=== PATIENT | female | born 1985 | race Caucasian/White ===

== ENCOUNTER 2024-09-25 20:45 | Emergency (ER) | payer OTHER ==
[~2024-09-25] VITALS: Ht 172.7 cm; Wt 80.5 kg
[~2024-09-25 20:45] MED LIST: AMOX875T PO
[2024-09-25 21:02] VITALS: BP 125/85; TEMP 98.2; O2SAT 98
== END 2024-09-25 21:34 | disposition left against medical advice (07) ==
LOC: M ED 20:45
DX: Z53.21 Procedure and treatment not carried out due to patient leaving prior to being seen by health care provider (principal)

== ENCOUNTER 2024-10-17 12:26 | Day surgery (SDC) | payer OTHER ==
[~2024-10-17] VITALS: Ht 172.7 cm; Wt 77.6 kg
[2024-10-17] MEDS: LIDOCAINE 2% W/ EPINEPHRINE 1.7 ML DENTAL INJ As Ordered ONE (08:06)
[2024-10-17] MEDS: BUPivacaine LIPOSOME/PF 266MG 20ML VIAL (13.3MG/ML)(EXPAREL) As Ordered ONE (08:06)
[~2024-10-17 12:26] MED LIST changes: +AMPICILLIN SOD/SULBACTAM SOD 3 GM in SODIUM CHLORIDE 0.9% 100ML ADD 100 ML IV ONE
[2024-10-17] MEDS ORDERED: LR 1,000 ML IV SCH ×2 (13:20→15:10)
[2024-10-17] MEDS ORDERED: LIDOCAINE 2% 100MG/5ML SDV (FOR ANES.) As Ordered ONE (14:00)
[2024-10-17] MEDS ORDERED: propofoL 200 MG/20 ML VIAL As Ordered ONE (14:00)
[2024-10-17] MEDS ORDERED: SUGAMMADEX SODIUM 500 MG/5 ML VIAL (BRIDION) As Ordered ONE (14:00)
[2024-10-17] MEDS ORDERED: ROCURONIUM BROMIDE 50MG/5ML VIAL As Ordered ONE (14:00)
[2024-10-17] MEDS ORDERED: ONDANSETRON 4MG 2ML VIAL As Ordered ONE (14:00)
[2024-10-17] MEDS ORDERED: MIDAZOLAM INJ 2MG/2ML VIAL As Ordered ONE (14:04)
[2024-10-17] MEDS ORDERED: fentaNYL 100 MCG/2 ML INJECTION As Ordered ONE (14:04)
[2024-10-17] MEDS: AMPICILLIN SOD/SULBACTAM SOD 3 GM in SODIUM CHLORIDE 0.9% 100ML ADD 100 ML IV ONE (14:45)
[2024-10-17] MEDS ORDERED: ACETAMINOPHEN 1000MG/100ML IV BAG As Ordered ONE (14:48)
[2024-10-17] MEDS: CHLORHEXIDINE GLUCONATE 0.12 % 15ML UDC (PERIDEX ORAL RINSE) As Ordered ONE (14:49)
[2024-10-17] MEDS ORDERED: fentaNYL 100 MCG/2 ML INJECTION IV PRN (15:10)
[2024-10-17] MEDS ORDERED: ONDANSETRON 4MG 2ML VIAL IV PRN (15:10)
[2024-10-17 16:00] VITALS: BP 125/81; TEMP 97.4; O2SAT 100
== END 2024-10-17 16:32 | disposition home or self-care (01) ==
LOC: M SDC 12:26
PROVIDERS: ATTEND Dentist
DX: K02.9 Dental caries, unspecified (principal)
CPT/HCPCS: 88300; D7210; D9223; J0131; J0295; J1100; J2250; J2405; J3010

== ENCOUNTER 2024-12-08 12:50 | Emergency (ER) | payer OTHER ==
[~2024-12-08] VITALS: Ht 167.6 cm; Wt 79.6 kg
[~2024-12-08 12:50] MED LIST changes: -AMPICILLIN SOD/SULBACTAM SOD 3 GM in SODIUM CHLORIDE 0.9% 100ML ADD 100 ML IV ONE
[2024-12-08 13:53] LABS: BASO % 0.3 % (0.0-1.0); EOS % 0.1 % (0.0-3.0); LYMPH # 1.2 10^3/uL (1.5-5.0); LYMPH % 17.5 % (24.0-44.0); MEAN CORPUSCULAR HGB CONC 33.3 g/dl (32.0-36.5); MEAN CORPUSCULAR VOLUME 80.9 fl (80.0-96.0); MONO # 0.5 10^3/uL (0.0-0.8); MONO % 7.7 % (2.0-8.0); NEUTROPHILS # 5.1 10^3/uL (1.5-8.5); PLATELET COUNT, AUTOMATED 239 10^3/uL (150-450); RED BLOOD COUNT 4.45 10^6/uL (4.00-5.40); WHITE BLOOD COUNT 6.9 10^3/uL (4.0-10.0)
[2024-12-08 14:18] LABS: LIPASE 64 U/L (12-53)
[2024-12-08 14:20] LABS: ALBUMIN 3.7 G/DL (3.2-5.2); ALKALINE PHOSPHATASE 125 U/L (35-104); ALT/SGPT 470 U/L (7.0-40); AST/SGOT 685 U/L (<34); BILIRUBIN,DIRECT 0.3 MG/DL (<0.4); BILIRUBIN,TOTAL 0.7 MG/DL (0.3-1.2); BLOOD UREA NITROGEN 11 MG/DL (9-23); CALCIUM LEVEL 9.5 MG/DL (8.5-10.1); CARBON DIOXIDE LEVEL 26 MMOL/L (20-31); CHLORIDE LEVEL 103 MMOL/L (98-107); CREATININE FOR GFR 0.77 MG/DL (0.55-1.30); GLOMERULAR FILTRATION RATE > 90.0 (>58); GLUCOSE, FASTING 120 MG/DL (60-100); POTASSIUM SERUM 4.3 MMOL/L (3.5-5.1); SODIUM LEVEL 140 MMOL/L (136-145); TOTAL PROTEIN 6.4 G/DL (5.7-8.2)
[2024-12-08 14:30] LABS: HCG, SERUM QUALITATIVE NEGATIVE (NEGATIVE)
[2024-12-08] MEDS: ONDANSETRON 4MG 2ML VIAL IV ONE (17:18)
[2024-12-08] MEDS: KETOROLAC 30 MG/ML 1ML VIAL IV ONE (17:51)
[2024-12-08] MEDS ORDERED: IBUP-1022 PO (18:08)
[2024-12-08] MEDS ORDERED: ONDA-282 PO (18:08)
[2024-12-08] MEDS ORDERED: AMOX875T2 PO (18:08)
[2024-12-08 18:42] VITALS: BP 107/65; TEMP 98.2; O2SAT 98
== END 2024-12-08 18:46 | disposition home or self-care (01) ==
LOC: M ED 12:50
DX: K80.00 Calculus of gallbladder with acute cholecystitis without obstruction (principal); K76.0 Fatty (change of) liver, not elsewhere classified; Z79.2 Long term (current) use of antibiotics; Z79.83 Long term (current) use of bisphosphonates; Z79.1 Long term (current) use of non-steroidal anti-inflammatories (NSAID)
CPT/HCPCS: 76705; 80048; 80076; 83690; 84703; 85025; 96374; 96375; 99284; J1885; J2405

== ENCOUNTER 2024-12-10 03:22 | Inpatient (IN) | payer OTHER ==
[~2024-12-10] VITALS: Ht 167.6 cm; Wt 81.0 kg
[~2024-12-10 03:22] MED LIST changes: +AMOX875T2 PO; +IBUP-1022 PO; +ONDA-282 PO
[2024-12-10] MEDS: ACETAMINOPHEN *IV* 1,000 MG in IV 1 EA IV ONE (05:00)
[2024-12-10 05:20] LABS: BASO % 0.5 % (0.0-1.0); EOS # 0.1 10^3/uL (0.0-0.5); EOS % 1.1 % (0.0-3.0); HEMATOCRIT 32.3 % (36.0-47.0); HEMOGLOBIN 10.7 g/dl (12.0-15.5); LYMPH # 1.3 10^3/uL (1.5-5.0); LYMPH % 18.8 % (24.0-44.0); MEAN CORPUSCULAR HEMOGLOBIN 27.6 pg (27.0-33.0); MEAN CORPUSCULAR HGB CONC 33.1 g/dl (32.0-36.5); MEAN CORPUSCULAR VOLUME 83.2 fl (80.0-96.0); MONO # 0.7 10^3/uL (0.0-0.8); MONO % 10.1 % (2.0-8.0); NEUTROPHILS # 4.6 10^3/uL (1.5-8.5); NEUTROPHILS % 69.2 % (36.0-66.0); PLATELET COUNT, AUTOMATED 218 10^3/uL (150-450); RED BLOOD COUNT 3.88 10^6/uL (4.00-5.40); WHITE BLOOD COUNT 6.7 10^3/uL (4.0-10.0)
[2024-12-10 05:31] LABS: INR 0.87; PARTIAL THROMBOPLASTIN TIME 25.5 SECONDS (24.8-34.2); PROTHROMBIN TIME 12.1 SECONDS (12.5-14.5)
[2024-12-10 05:50] LABS: URINE PREG TEST NEGATIVE (NEGATIVE)
[2024-12-10 05:57] LABS: ALBUMIN 3.4 G/DL (3.2-5.2); ALKALINE PHOSPHATASE 144 U/L (35-104); ALT/SGPT 410 U/L (7.0-40); AST/SGOT 240 U/L (<34); BILIRUBIN,DIRECT 0.5 MG/DL (<0.4); BILIRUBIN,TOTAL 0.9 MG/DL (0.3-1.2); BLOOD UREA NITROGEN 12 MG/DL (9-23); CARBON DIOXIDE LEVEL 25 MMOL/L (20-31); CHLORIDE LEVEL 109 MMOL/L (98-107); CREATININE FOR GFR 0.74 MG/DL (0.55-1.30); GLOMERULAR FILTRATION RATE > 90.0 (>58); GLUCOSE, FASTING 93 MG/DL (60-100); LIPASE 1067 U/L (12-53); POTASSIUM SERUM 3.5 MMOL/L (3.5-5.1); SODIUM LEVEL 143 MMOL/L (136-145)
[2024-12-10 05:57] LABS: KETONE, URINE AUTO RFX NEGATIVE (NEGATIVE); LEUKOCYTE ESTERASE UR AUTO RFX NEGATIVE (NEGATIVE); MUCUS, URINE RFX SMALL (NEGATIVE); NITRITE, URINE AUTO RFX NEGATIVE (NEGATIVE); RBC, URINE AUTO RFX 0 /HPF (0-3); SQUAM EPITHELIAL CELL UR AURFX 3 /HPF (0-6); WBC, URINE AUTO RFX 1 /HPF (0-3)
[2024-12-10] MEDS ORDERED: GABA-284 PO (11:16)
[2024-12-10] MEDS: PIPERACILLIN/TAZOBACTAM SOD 3.375 GM in DEXTROSE 5% (D5W) ADV/MINI-BAG 50 ML IV ONE (11:35)
[2024-12-10] MEDS: KETOROLAC 30 MG/ML 1ML VIAL IV ONE (11:35)
[2024-12-10 11:43] LABS: BASO % 0.4 % (0.0-1.0); EOS # 0.1 10^3/uL (0.0-0.5); EOS % 1.3 % (0.0-3.0); LYMPH # 1.3 10^3/uL (1.5-5.0); LYMPH % 28.5 % (24.0-44.0); MONO # 0.6 10^3/uL (0.0-0.8); MONO % 12.1 % (2.0-8.0); NEUTROPHILS # 2.7 10^3/uL (1.5-8.5); NEUTROPHILS % 57.5 % (36.0-66.0); WHITE BLOOD COUNT 4.6 10^3/uL (4.0-10.0)
[2024-12-10 11:57] LABS: ALBUMIN 3.3 G/DL (3.2-5.2); BILIRUBIN,DIRECT 0.7 MG/DL (<0.4); BILIRUBIN,TOTAL 1.2 MG/DL (0.3-1.2); TOTAL PROTEIN 5.7 G/DL (5.7-8.2)
[2024-12-10] MEDS ORDERED: AMOX875T2 PO (13:25)
[2024-12-10] MEDS ORDERED: GABA-1172 PO (13:26)
[2024-12-10] MEDS ORDERED: IBUP1TAB6 PO (13:28)
[2024-12-10] MEDS ORDERED: ONDA-282 PO (13:29)
[2024-12-10] MEDS ORDERED: THERTAB52 PO (13:30)
[2024-12-10] MEDS ORDERED: PROMETHAZINE 25MG/ML 1ML VIAL IV PRN (13:35)
[2024-12-10] MEDS ORDERED: MORPHINE 4 MG/ML 1ML VIAL IV PRN (13:35)
[2024-12-10] MEDS ORDERED: HOME MED LIST COMPLETE! XX SCH (13:35)
[2024-12-10] MEDS ORDERED: MORPHINE 2 MG/ML 1ML VIAL IV PRN ×2 (13:35)
[2024-12-10] MEDS ORDERED: ONDANSETRON 4MG 2ML VIAL IV PRN (13:35)
[2024-12-10] MEDS: PANTOPRAZOLE 40MG VIAL IV SCH (14:22)
[2024-12-10] MEDS: NS (Normal Saline) 0.9% 1,000 ML IV SCH (14:22)
[2024-12-10 15:55] VITALS: BP 97/68; TEMP 97; O2SAT 98
[2024-12-10] MEDS: PIPERACILLIN/TAZOBACTAM SOD 3.375 GM in DEXTROSE 5% (D5W) ADV/MINI-BAG 50 ML IV SCH (18:16)
[2024-12-10] MEDS: KETOROLAC 30 MG/ML 1ML VIAL IV SCH (18:17)
[2024-12-10 19:37] VITALS: BP 98/64; TEMP 97.2; O2SAT 99
[2024-12-10 23:39] VITALS: BP 117/62; TEMP 97.5; O2SAT 98
[2024-12-11 03:50] VITALS: BP 106/66; TEMP 97.2; O2SAT 98
[2024-12-11 04:00] VITALS: BP 106/66; TEMP 97.2; O2SAT 98
[2024-12-11 06:01] LABS: HEMATOCRIT 32.1 % (36.0-47.0); HEMOGLOBIN 10.2 g/dl (12.0-15.5); MEAN CORPUSCULAR HEMOGLOBIN 26.6 pg (27.0-33.0); MEAN CORPUSCULAR HGB CONC 31.8 g/dl (32.0-36.5); MEAN CORPUSCULAR VOLUME 83.6 fl (80.0-96.0); PLATELET COUNT, AUTOMATED 217 10^3/uL (150-450); RED BLOOD COUNT 3.84 10^6/uL (4.00-5.40); WHITE BLOOD COUNT 4.4 10^3/uL (4.0-10.0)
[2024-12-11 06:29] LABS: LIPASE 64 U/L (12-53)
[2024-12-11 06:35] LABS: ALKALINE PHOSPHATASE 141 U/L (35-104); ALT/SGPT 384 U/L (7.0-40); AST/SGOT 128 U/L (<34); BILIRUBIN,TOTAL 0.7 MG/DL (0.3-1.2); BLOOD UREA NITROGEN 11 MG/DL (9-23); CALCIUM LEVEL 8.2 MG/DL (8.5-10.1); CARBON DIOXIDE LEVEL 25 MMOL/L (20-31); CHLORIDE LEVEL 108 MMOL/L (98-107); CREATININE FOR GFR 0.75 MG/DL (0.55-1.30); GLOMERULAR FILTRATION RATE > 90.0 (>58); GLUCOSE, FASTING 69 MG/DL (60-100); POTASSIUM SERUM 3.6 MMOL/L (3.5-5.1); SODIUM LEVEL 141 MMOL/L (136-145); TOTAL PROTEIN 5.3 G/DL (5.7-8.2)
[2024-12-11 08:00] VITALS: BP 112/61; TEMP 97; O2SAT 96
[2024-12-11 12:00] VITALS: BP 111/63; TEMP 97; O2SAT 97
[2024-12-11 16:00] VITALS: BP 110/64; TEMP 97.2; O2SAT 97
== END 2024-12-11 17:38 | disposition left against medical advice (07) ==
LOC: M ED 03:22 → M ED INP 13:31 → M MSPAV 15:52
PROVIDERS: ADMIT Surgery; ATTEND Surgery
DX: K81.0 Acute cholecystitis (principal); K85.90 Acute pancreatitis without necrosis or infection, unspecified; Z79.899 Other long term (current) drug therapy

== ENCOUNTER 2024-12-18 05:43 | Emergency (ER) | payer OTHER, SELFPAY ==
[~2024-12-18] VITALS: Ht 172.7 cm; Wt 74.0 kg
[~2024-12-18 05:43] MED LIST changes: +GABA-1172 PO; +GABA-284 PO; +IBUP1TAB6 PO; +THERTAB52 PO
[2024-12-18 06:47] LABS: BARBITURATES URINE NEGATIVE (NEGATIVE); BENZODIAZEPINES URINE NEGATIVE (NEGATIVE); COCAINE METABOLITE URINE NEGATIVE (NEGATIVE); METHADONE URINE NEGATIVE (NEGATIVE)
[2024-12-18 06:48] LABS: CANNABINOIDS URINE NEGATIVE (NEGATIVE); MEAN CORPUSCULAR HEMOGLOBIN 27.2 pg (27.0-33.0); MEAN CORPUSCULAR HGB CONC 33.3 g/dl (32.0-36.5); MEAN CORPUSCULAR VOLUME 81.7 fl (80.0-96.0); OPIATES URINE NEGATIVE (NEGATIVE); PHENCYCLIDINE URINE NEGATIVE (NEGATIVE); PLATELET COUNT, AUTOMATED 331 10^3/uL (150-450); RED BLOOD COUNT 4.04 10^6/uL (4.00-5.40); WHITE BLOOD COUNT 11.9 10^3/uL (4.0-10.0)
[2024-12-18 06:49] LABS: AMPHETAMINES LEVEL URINE POSITIVE (NEGATIVE)
[2024-12-18 06:54] LABS: ETHYL ALCOHOL (ETHANOL) 0.031 % (0.000-0.010)
[2024-12-18 06:55] LABS: ALBUMIN 4.2 G/DL (3.2-5.2); ALKALINE PHOSPHATASE 96 U/L (35-104); ALT/SGPT 91 U/L (7.0-40); AST/SGOT 26 U/L (<34); BILIRUBIN,DIRECT 0.2 MG/DL (<0.4); BILIRUBIN,TOTAL 0.4 MG/DL (0.3-1.2); BLOOD UREA NITROGEN 7 MG/DL (9-23); CARBON DIOXIDE LEVEL 27 MMOL/L (20-31); CHLORIDE LEVEL 106 MMOL/L (98-107); CREATININE FOR GFR 0.86 MG/DL (0.55-1.30); GLUCOSE, FASTING 71 MG/DL (60-100); POTASSIUM SERUM 3.7 MMOL/L (3.5-5.1); SALICYLATE LEVEL 3.1 MG/DL (<30); SODIUM LEVEL 145 MMOL/L (136-145); THYROID STIMULATING HORMONE 1.165 uIU/ML (0.55-4.78); TOTAL PROTEIN 6.9 G/DL (5.7-8.2)
[2024-12-18] MEDS: GABAPENTIN 300 MG CAP PO ONE (09:47)
[2024-12-18 11:45] VITALS: BP 112/70; TEMP 97; O2SAT 100
== END 2024-12-18 11:46 | disposition home or self-care (01) ==
LOC: M ED 05:43
DX: F10.10 Alcohol abuse, uncomplicated (principal); F19.10 Other psychoactive substance abuse, uncomplicated; F31.9 Bipolar disorder, unspecified; F17.200 Nicotine dependence, unspecified, uncomplicated; Z79.2 Long term (current) use of antibiotics; Z79.899 Other long term (current) drug therapy; Z79.83 Long term (current) use of bisphosphonates

== ENCOUNTER → 2024-12-29 | Outpatient (CLI) | payer OTHER | LOC: M PLAIMG 11:38 | PROVIDERS: ATTEND Orthopaedic Surgery | DX: M16.11 Unilateral primary osteoarthritis, right hip (principal); M67.853 Other specified disorders of tendon, right hip; M70.61 Trochanteric bursitis, right hip; D25.9 Leiomyoma of uterus, unspecified ==